=== PATIENT | male | born 1945 | race Caucasian/White ===

== ENCOUNTER 2018-12-22 21:00 | Emergency (ER) | payer OTHER ==
[~2018-12-22] VITALS: Ht 162.6 cm; Wt 61.2 kg
[2018-12-22 21:02] VITALS: BP 158/92
--- NOTE | 2018-12-22 21:02 | NUR ---
PT TAKEN TO BED 2
--- NOTE | 2018-12-22 21:21 | NUR ---
PT TO ED C/O DOG BITE X 1 HR. NOTED LAC TO L WRIST, 2 LACERATIONS ON L LEG (1 POSTERIOR, 1 ANTERIOR). BLEEDING CONTROLLED. DOG IS IMMUNIZED, PT IS NOT UPDATED ON TDAP. PMH--DENIES RX--DENIES
[2018-12-22] MEDS ORDERED: CLINDAMYCIN 150 MG CAP PO ONE (21:25)
[2018-12-22] MEDS ORDERED: LIDOCAINE 1% 500 MG/50 ML VIAL INJ SCH (21:40)
[2018-12-22] MEDS ORDERED: LIDOCAINE 2% 1000 MG/50 ML VIAL INJ ONE ×2 (21:55→22:03)
[2018-12-22 23:08] VITALS: BP 143/86
--- NOTE | 2018-12-22 23:08 | NUR ---
Patient discharged with v/s stable. Written and verbal after care instructions given and explained. Patient alert, oriented and verbalized understanding of instructions. Ambulatory with steady gait. All questions addressed prior to discharge. ID band removed. Patient advised to follow up with PMD. Rx of AUGMENTIN, IBUPROFEN given. Patient educated on indication of medication including possible reaction and side effects. Opportunity to ask questions provided and answered.
--- NOTE | 2018-12-23 02:29 | NUR ---
FAXED [facility].TIME 0:01:30 FLIE# [id number]
== END 2018-12-22 23:08 | disposition home or self-care (01) ==
LOC: MED 21:00
DX: S81.852A Open bite, left lower leg, initial encounter (principal); S61.552A Open bite of left wrist, initial encounter; S61.250A Open bite of right index finger without damage to nail, initial encounter; W54.0XXA Bitten by dog, initial encounter; Y93.89 Activity, other specified; Y92.89 Other specified places as the place of occurrence of the external cause; Y99.8 Other external cause status
CPT/HCPCS: 12006; 73110; 73590; 90471; 90715; 99284; J2001; Q0092

== ENCOUNTER 2018-12-26 14:42 | Emergency (ER) | payer OTHER ==
[~2018-12-26] VITALS: Ht 162.6 cm; Wt 71.9 kg
[2018-12-26 14:55] VITALS: BP 162/88
--- NOTE | 2018-12-26 16:31 | NUR ---
PATIENT AMBULATED TO BED 1
--- NOTE | 2018-12-26 16:40 | NUR ---
PATIENT PRESENTS TO ED WITH wound check s/p dog bite x 4 days ago . PT STATES . DENIES N/V/D; SKIN IS PINK/WARM/DRY; AAOX4 WITH EVEN AND STEADY GAIT; LUNGS CLEAR BL; HR EVEN AND REGULAR; PT DENIES ANY FEVER, CP, SOB, OR COUGH AT THIS TIME; PATIENT STATES PAIN OF 2/10 AT THIS TIME; VSS; PATIENT POSITIONED FOR COMFORT; HOB ELEVATED; BEDRAILS UP X2; BED DOWN. ER MD MADE AWARE OF PT STATUS.
[2018-12-26 18:11] VITALS: BP 162/88
--- NOTE | 2018-12-26 18:11 | NUR ---
spoke with pt---instructed to continue with same care pt did not want to wait for dc paperwork---md aware
== END 2018-12-26 18:11 | disposition home or self-care (01) ==
LOC: MED 14:42
DX: S81.852D Open bite, left lower leg, subsequent encounter (principal); S61.552D Open bite of left wrist, subsequent encounter; S61.250D Open bite of right index finger without damage to nail, subsequent encounter; W54.0XXD Bitten by dog, subsequent encounter
CPT/HCPCS: 99281; 99283

== ENCOUNTER 2019-01-03 11:53 | Emergency (ER) | payer OTHER ==
[~2019-01-03] VITALS: Ht 162.6 cm; Wt 63.5 kg
[2019-01-03 12:30] VITALS: BP 153/83
--- NOTE | 2019-01-03 14:44 | NUR ---
patient ambulated to er bed 8
[2019-01-03] MEDS ORDERED: CLINDAMYCIN 600 MG/4 ML VIAL IM ONE (15:35)
--- NOTE | 2019-01-03 15:45 | NUR ---
73/M BIB SELF, PATIENT CAME IN TO HAVE SUTURES REMOVED AFTER BEING BIT BY A DOG ON 12/22/18. SUTURES LOCATED ON LEFT LOWER LEG ABOVE ANKLE. SITE HAS MINIMAL REDNESS, NO DRAINAGE, DENIES PAIN. DENIES SOB, CP, NVD, OR FEVERS. DENIES ANY OTHER SYMPTOM.
[2019-01-03 16:14] VITALS: BP 151/73
--- NOTE | 2019-01-03 16:14 | NUR ---
Patient discharged with v/s stable. Written and verbal after care instructions given and explained. Patient alert, oriented and verbalized understanding of instructions. Ambulatory with steady gait. All questions addressed prior to discharge. ID band removed. Patient advised to follow up with PMD. Rx of BACTROBAN given. Patient educated on indication of medication including possible reaction and side effects. Opportunity to ask questions provided and answered.
== END 2019-01-03 16:14 | disposition home or self-care (01) ==
LOC: MED 11:53
DX: S81.812D Laceration without foreign body, left lower leg, subsequent encounter (principal); X58.XXXD Exposure to other specified factors, subsequent encounter
CPT/HCPCS: 99283; J3490